=== PATIENT | male | born 1995 | race Caucasian/White ===

== ENCOUNTER 2019-04-23 17:00 | Emergency (ER) | payer OTHER ==
[~2019-04-23] VITALS: Ht 177.8 cm; Wt 84.1 kg
[2019-04-23] MEDS ORDERED: MUPIROCIN 2% OINT 22 GM TUBE TOP ONE (18:45)
[2019-04-23] MEDS ORDERED: CLINDAMYCIN 150 MG CAP PO ONE (18:45)
[2019-04-23 18:48] VITALS: BP 131/84
[2019-04-23] MEDS ORDERED: CLIN300C5 PO (18:51)
[2019-04-23] MEDS ORDERED: TERB250T12 PO (18:51)
[2019-04-23] MEDS ORDERED: NYST1POW9 TOP (18:51)
== END 2019-04-23 19:04 | disposition home or self-care (01) ==
LOC: M ED 17:00
DX: B37.89 Other sites of candidiasis (principal); B35.4 Tinea corporis; Z91.013 Allergy to seafood

== ENCOUNTER 2020-04-17 10:41 | Emergency (ER) | payer OTHER ==
[~2020-04-17] VITALS: Ht 177.8 cm; Wt 90.1 kg
[~2020-04-17 10:41] MED LIST: CLIN300C6 PO; NYST1POW9 TOP; TERB250T12 PO
--- OUTSIDE RECORDS SUMMARY | 2020-04-17 10:47 | CCD ---
Author Author [facility] Address Unknown Phone Unavailable Support Name Relationship Address Phone [facility] Next Of Kin [address] [place] [address] Unavailable Re-disclosure Warning The records that you are about to access may contain information from federally-assisted alcohol or drug abuse programs. If such information is present, then the following federally mandated warning applies: This information has been disclosed to you from records protected by federal confidentiality rules (42 CFR part 2). The federal rules prohibit you from making any further disclosure of this information unless further disclosure is expressly permitted by the written consent of the person to whom it pertains or as otherwise permitted by 42 CFR part 2. A general authorization for the release of medical or other information is NOT sufficient for this purpose. The Federal rules restrict any use of the information to criminally investigate or prosecute any alcohol or drug abuse patient.The records that you are about to access may contain highly sensitive health information, the redisclosure of which is protected by Article 27-F of the [facility] Public Health law. If you continue you may have access to information: Regarding HIV / AIDS; Provided by facilities licensed or operated by the [facility] Office of Mental Health; or Provided by the [facility] Office for People With Developmental Disabilities. If such information is present, then the following [facility] mandated warning applies: This information has been disclosed to you from confidential records which are protected by state law. State law prohibits you from making any further disclosure of this information without the specific written consent of the person to whom it pertains, or as otherwise permitted by law. Any unauthorized further disclosure in violation of state law may result in a fine or long term sentence or both. A general authorization for the release of medical or other information is NOT sufficient authorization for further disc losure. Medications Medication Brand Name Start Date Product Form Dose Route Admi nistrative Instructions Pharmacy Instructions Status Indications Reaction Description Data Source(s) 0.12 % 03/19/2020 12:00:00 AM EST mouthwash 473 RINSE MOUTH WITH 15ML (1CAPFUL) FOR 30 SECONDS MORNING AND EVENING AFTER TOOTHBRUSHING, EXPECTORATE AFTER RINSING, DO NOT SWALLOW RINSE MOUTH WITH 15ML (1CAPFUL) FOR 30 S ECONDS MORNING AND EVENING AFTER TOOTHBRUSHING, EXPECTORATE AFTER RINSING, DO NOT SWALLOW SOLD: 03/19/2020 [facility] 5-325 mg 03/19/2020 12:00:00 AM EST tablet 4 TAKE 1 TABLET BY MOUTH EVERY 4- 6 HOURS NEEDED FOR PAIN MAXIMUM DAILY DOSE = 6 TAKE 1 TABLET BY MOUTH EVERY 4-6 HOURS NEEDED FOR PAIN MAXIMUM DAILY DOSE = 6 SOLD: 03/19/2020 [facility] 4 mg 03/19/2020 12:00:00 AM EST tablets,dose pack 21 TAKE DIRECTED TAKE DIRECTED SOLD: 03/19/2020 [facility] 600 mg 03/19/2020 12:00:00 AM EST tablet 20 TAKE ONE TABLET BY MOUTH EVERY 6 HOURS NEEDED TAKE ONE TABLET BY MOUTH EVERY 6 HOURS NEEDED SOLD: 03/19/2020 [facility] 500 mg 03/19/2020 12:00:00 AM EST capsule 21 TAKE ONE CAPSULE BY MOUTH EVERY 8 HOURS UNTIL GONE TAKE ONE CAPSULE BY MOUTH EVERY 8 HOURS UNTIL GONE [facility] Insurance Providers Payer name Policy type / Coverage type Policy ID Covered democrat ID Covered democrat's relationship to fonseca Policy [employer] Plan Information [facility] ACTIVE DUTY [id number]
--- NOTE | 2020-04-17 12:01 | REP ---
INDICATION: pain. COMPARISON: None. TECHNIQUE: Real-time sonographic evaluation of scrotum and contents performed. FINDINGS: The testicles are normal in size and echotexture, right testicle measuring 4.9 x 2.2 x 2.6 cm and left testicle 4.8 x 2.2 x 2.9 cm. There is no testicular mass or torsion. Blood flow is seen in each testicle with duplex Doppler evaluation. The epididymis is unremarkable bilaterally. There is no significant hydrocele. IMPRESSION: Negative scrotal ultrasound. <Electronically signed by Geronimo Banerjee > 04/17/20 [id number]
--- OUTSIDE RECORDS SUMMARY | 2020-04-17 12:15 | CCD ---
Author Author [facility] Address Unknown Phone Unavailable Support Name Relationship Address Phone [facility] Next Of Kin [address] [place] [address] Unavailable Re-disclosure Warning The records that you [...] is protected by Article 27-F of the [facility] Public Health law. If you continue you may have access to information: Regarding HIV / AIDS; Provided by facilities licensed or operated by the [facility] Office of Mental Health; or Provided by the [facility] Office for People With Developmental Disabilities. If such information is present, then the following [facility] mandated warning applies: This information has [...] law may result in a fine or halfway sentence or both. A general authorization for [...] type / Coverage type Policy ID Covered republican ID Covered republican's relationship to fonseca Policy [employer] Plan Information [facility] ACTIVE DUTY [id number]
[2020-04-17 14:40] LABS: CHLAMYDIA DNA AMPLIFICATION NEGATIVE (NEGATIVE); GC DNA AMPLIFICATION NEGATIVE (NEGATIVE)
[2020-04-17] MEDS ORDERED: IBUP80TA PO (14:52)
[2020-04-17 14:55] VITALS: BP 131/69
== END 2020-04-17 14:59 | disposition home or self-care (01) ==
LOC: M ED 10:41
DX: N45.2 Orchitis (principal); Z91.018 Allergy to other foods